=== PATIENT | female | born 1985 | race Hispanic/Latino ===

== ENCOUNTER 2021-04-16 14:19 | Emergency (ER) | payer BC ==
--- NOTE | 2021-04-16 14:57 | ER ---
Nurse's Notes [facility] Name: Richa Raphael Age: 35 yrs Sex: Female : 1985 Arrival Date: 04/16/2021 Time: 14:21 Bed Waiting Private MD: Diagnosis: Burn of second degree of left forearm Presentation: 04/16 14:39 Chief complaint: Patient states: I was cooking chicken two days ago. I got burned on my ld1 left wrist by grease. Coronavirus screen: At this time, the client does not indicate any symptoms associated with coronavirus-19. Ebola Screen: No symptoms or risks identified at this time. Initial Sepsis Screen: Does the patient meet any 2 criteria? No. Patient's initial sepsis screen is negative. Does the patient have a suspected source of infection? No. Patient's initial sepsis screen is negative. Risk Assessment: Do you want to hurt yourself or someone else? Patient reports no desire to harm self or others. Onset of symptoms was April 16, 2021. 14:39 Method Of Arrival: Ambulatory ld1 14:39 Acuity: KAIDEN 4 ld1 Triage Assessment: 14:40 General: Appears in no apparent distress. comfortable, Behavior is calm, cooperative, ld1 appropriate for age. Pain: Complains of pain in left wrist Pain does not radiate. Respiratory: Airway is patent Respiratory effort is even, unlabored, Respiratory pattern is regular, symmetrical. Injury Description: Burn was sustained 2 days ago. 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 - Social history:: Smoking status: Patient denies any tobacco usage or history of. Patient/guardian denies using alcohol. Screenin:53 Abuse screen: Denies threats or abuse. Denies injuries from another. Nutritional ld1 screening: No deficits noted. Tuberculosis screening: No symptoms or risk factors identified. Fall Risk None identified. Assessment: 15:53 Reassessment: See triage assessment. ld1 Vital Signs: 14:39 BP 109 / 91; Pulse 72; Resp 18; Temp 98.7(O); Pulse Ox 97% on R/A; Weight 83.91 kg; ld1 Height 5 ft. 5 in. (165.10 cm); Pain 7/10; 14:39 Body Mass Index 30.79 (83.91 kg, 165.10 cm) ld1 ED Course: 14:21 Patient arrived in ED. mr 14:40 Triage completed. ld1 14:41 Arm band placed on right wrist. EKG completed in triage. Results shown to MD. ld1 14:42 Fred Ceja NP is PHCP. pm1 14:42 Carlos Enrique Irwin MD is Attending Physician. pm1 15:53 Patient has correct armband on for positive identification. Placed in gown. Bed in low ld1 position. Call light in reach. Side rails up X2. Pulse ox on. NIBP on. 15:53 No provider procedures requiring assistance completed. Patient did not have IV access ld1 during this emergency room visit. 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 Exp: ld1 08/23/2022. Lot #: [id number]. } Route: IM; Site: left deltoid; 15:45 Drug: [place] (HYDROcodone-acetaminophen) 10 mg-325 mg 1 tabs Route: PO; ld1 Outcome: 14:56 Discharge ordered by MD. pm1 15:54 Discharged to home ambulatory. ld1 15:54 Discharged to home with family. 15:54 Condition: stable 15:54 Discharge instructions given to patient, Instructed on discharge instructions, follow up and referral plans. medication usage, wound care, Demonstrated understanding of instructions, follow-up care, medications, wound care. 15:54 Patient left the ED. ld1 Signatures: Gurmeet Bren mr Fred Ceja, COLLATERAL ANALYST COLLATERAL ANALYST pm1 Katrin Wolf RN RN ld1 Corrections: (The following items were deleted from the chart) 14:42 14:40 Home Meds: None; ld1 ld1 14:42 14:40 PMHx: None; ld1 ld1
--- NOTE | 2021-04-16 14:57 | EDPHYS ---
Physician Documentation [facility] Name: Richa Raphael Age: 35 yrs Sex: Female : 1985 Arrival Date: 04/16/2021 Time: 14:21 Bed Waiting Private MD: ED Physician Carlos Enrique Irwin HPI: 04/16 14:58 This 35 yrs old Female presents to ER via Ambulatory with complaints of Burn. pm1 14:58 The patient presents with a burn as a result of hot grease, while cooking, at home, is pm1 located on the palmar aspect of left forearm and left wrist. Onset: The symptoms/episode began/occurred 2 day(s) ago. Burn type and severity: 2nd degree: approximately 0.5% total body surface area of second degree injury, of the palmar aspect of left forearm. Associated signs and symptoms: Pertinent negatives: fever. The patient has not recently seen a physician, out of town. 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 - Social history:: Smoking status: Patient denies any tobacco usage or history of. Patient/guardian denies using alcohol. ROS: 14:58 Constitutional: Negative for fever, chills, and weight loss, Cardiovascular: Negative pm1 for chest pain, palpitations, and edema, Respiratory: Negative for shortness of breath, cough, wheezing, and pleuritic chest pain. 14:58 Neuro: Negative for headache, weakness, numbness, tingling, and seizure. 14:58 MS/extremity: Negative for decreased range of motion, deformity. 14:58 Skin: Positive for burn, of the palmar aspect of left forearm, Negative for abscesses, cellulitis. 14:58 All other systems are negative. Exam: 14:58 Constitutional: This is a well developed, well nourished patient who is awake, alert, pm1 and in no acute distress. Head/Face: Normocephalic, atraumatic. 14:58 Cardiovascular: Exam negative for acute changes, Rate: normal, Rhythm: regular, Pulses: no pulse deficits are appreciated. 14:58 Respiratory: Exam negative for acute changes, respiratory distress, shortness of breath. 14:58 Musculoskeletal/extremity: Exam is negative for acute changes. 14:58 Skin: Appearance: normal except for affected area, injury, burn(s), 2nd degree burn injury covers approximately 0.5% of the total body surface area, and is located on the palmar aspect of left forearm. 14:58 Neuro: Exam negative for acute changes, Orientation: is normal, Mentation: is normal, Motor: is normal, Gait: is steady, at a normal pace, without difficulty. Vital Signs: 14:39 BP 109 / 91; Pulse 72; Resp 18; Temp 98.7(O); Pulse Ox 97% on R/A; Weight 83.91 kg; ld1 Height 5 ft. 5 in. (165.10 cm); Pain 7/10; 14:39 Body Mass Index 30.79 (83.91 kg, 165.10 cm) ld1 MDM: 14:52 Data reviewed: vital signs. Data interpreted: Pulse oximetry: on room air is 97 %. pm1 Interpretation: normal. Counseling: I had a detailed discussion with the patient and/or guardian regarding: the historical points, exam findings, and any diagnostic results supporting the discharge/admit diagnosis, the need for outpatient follow up, to return to the emergency department if symptoms worsen or persist or if there are any questions or concerns that arise at home. 14:56 Patient medically screened. pm1 15:06 ED course: [place]MP[place] reviewed. pm1 04/16 14:58 Order name: Wound Care; Complete Time: 15:53 pm1 Administered Medications: 15:45 Drug: Tetanus-Diphtheria Toxoid Adult 0.5 ml {[employer]uber: [employer]. Exp: ld1 08/23/2022. Lot #: [id number]. } Route: IM; Site: left deltoid; 15:45 Drug: [place] (HYDROcodone-acetaminophen) 10 mg-325 mg 1 tabs Route: PO; ld1 Disposition: 16:26 Co-signature as Attending Physician, Carlos Enrique Irwin MD I agree with the assessment and rn plan of care. Attestation: The patient's history, exam findings, diagnostics, and a summary of any interventions or procedures was reviewed in detail with Fred Ceja NP. Disposition Summary: 04/16/21 14:56 Discharge Ordered Location: Home pm1 Problem: new pm1 Symptoms: have improved pm1 Condition: Stable pm1 Diagnosis - Burn of second degree of left forearm pm1 Followup: pm1 - With: Emergency Department - When: As needed - Reason: Worsening of condition Followup: pm1 - With: Private Physician - When: 2 - 3 days - Reason: Recheck today's complaints, Continuance of care, Re-evaluation by your physician Discharge Instructions: - Discharge Summary Sheet pm1 - Second-Degree Burn, Adult pm1 Forms: - Medication Reconciliation Form pm1 - Thank You Letter pm1 - Antibiotic Education pm1 - Prescription Opioid Use pm1 Prescriptions: - bacitracin 500unit/g - Apply to affected area 1 application by TOPICAL route every 8 hours; 1 tube; pm1 Refills: 0, Product Selection Permitted - Tramadol 50 mg Oral Tablet - take 1 tablet by ORAL route every 8 hours As needed as needed; 10 tablet; pm1 Refills: 0, Product Selection Permitted Signatures: Carlos Enrique Irwin MD MD rn Marinas, Patrick, NP TURRET LATHE TENDER pm1 Katrin Wolf RN RN ld1 Corrections: (The following items were deleted from the chart) 14:42 14:40 Home Meds: None; ld1 ld1 14:42 14:40 PMHx: None; ld1 ld1 15:14 14:56 Burn of second degree of left wrist, initial encounter pm1 pm1
[2021-04-16] MEDS ORDERED: MUPIROCIN 2% OINT 22GM TUBE TOP ONE (15:47)
[2021-04-16] MEDS ORDERED: HYDROCODONE/APAP 10/325 TAB ONE (15:47)
[2021-04-16] MEDS ORDERED: TETANUS & DIPHTHERIA TOX,ADULT 0.5 ML VIAL ONE (15:47)
[2021-04-16 15:59] VITALS: BP 109/91; TEMP 98.7; O2SAT 97
== END 2021-04-16 15:54 | disposition home or self-care (01) ==
LOC: ER 14:19
DX: T22.212A Burn of second degree of left forearm, initial encounter (principal); T31.0 Burns involving less than 10% of body surface; T79.9XXA Unspecified early complication of trauma, initial encounter; X10.2XXA Contact with fats and cooking oils, initial encounter; Y93.G3 Activity, cooking and baking; Y92.9 Unspecified place or not applicable; Z23 Encounter for immunization
CPT/HCPCS: 90471; 90714; 99283